=== PATIENT | male | born 1995 | race Caucasian/White ===

== ENCOUNTER 2023-05-10 04:56 | Emergency (ER) | payer MEDICAID ==
[~2023-05-10] VITALS: Ht 180.3 cm; Wt 71.7 kg
[2023-05-10 05:02] VITALS: BP 136/84; PULSE 96; RESP 16; O2SAT 8
== END 2023-05-10 07:22 | disposition left against medical advice (07) ==
LOC: ER 04:56
DX: S09.93XA Unspecified injury of face, initial encounter (principal); Z53.21 Procedure and treatment not carried out due to patient leaving prior to being seen by health care provider; W26.8XXA Contact with other sharp object(s), not elsewhere classified, initial encounter; Y93.89 Activity, other specified; Y92.89 Other specified places as the place of occurrence of the external cause; Y99.8 Other external cause status